=== PATIENT | male | born 1995 | race Two or more races ===

== ENCOUNTER 2018-10-22 15:01 | Emergency (ER) | payer SELFPAY ==
[~2018-10-22] VITALS: Ht 170.2 cm; Wt 77.1 kg
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
--- NOTE | 2018-10-22 15:18 | NUR ---
SLABBER LIGHT AT BEDSIDE.
--- NOTE | 2018-10-22 15:36 | NUR ---
DIEGO BRYAN AT BEDSIDE FOR PT UPDATE.
[2018-10-22] MEDS ORDERED: HYDROCODONE/APAP 10-325 MG TABLET PO ONE (15:45)
[2018-10-22] MEDS ORDERED: HYDROCODONE/APAP 10-325 MG TABLET ONE (15:47)
--- NOTE | 2018-10-22 15:49 | NUR ---
Patient discharged to home in stable conditon. Written and verbal after care instructions given. Patient verbalizes understanding of instructions. ALL BELONGINGS W/ PT. PT SELF-AMBULATED W/O DIFFICULTY.
[2018-10-22 15:50] VITALS: BP 142/90
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
== END 2018-10-22 15:51 | disposition home or self-care (01) ==
LOC: ER 15:04
DX: M25.512 Pain in left shoulder (principal); M25.562 Pain in left knee; V43.52XA Car driver injured in collision with other type car in traffic accident, initial encounter; Y92.410 Unspecified street and highway as the place of occurrence of the external cause; Y93.89 Activity, other specified; Y99.8 Other external cause status
CPT/HCPCS: 73030; A4663